=== PATIENT | male | born 1955 | race Hispanic/Latino ===

== ENCOUNTER 2020-10-07 09:45 | Emergency (ER) | payer BC ==
[~2020-10-07] VITALS: Ht 175.3 cm; Wt 119.7 kg
[2020-10-07 09:46] VITALS: BP 122/62
[2020-10-07] MEDS ORDERED: FAMOTIDINE 20MG VIAL IV ONE (10:29)
[2020-10-07] MEDS ORDERED: FAMOTIDINE 20MG VIAL IV SCH (10:30)
[2020-10-07 10:34] LABS: BASOPHILS % (AUTO) 0.2 % (0.0-5.0); EOSINOPHILS % (AUTO) 0.1 % (0.0-8.0); HEMATOCRIT 41.8 % (42-54); LYMPHOCYTES % (AUTO) 6.8 % (21.0-51.0); MEAN CORPUSCULAR HEMOGLOBIN 32.3 pg (27.0-33.0); MEAN CORPUSCULAR HGB CONC 34.7 g/dL (32.0-36.0); MEAN CORPUSCULAR VOLUME 93.1 fL (79-99); MONOCYTES % (AUTO) 3.6 % (3.0-13.0); NEUTROPHILS % (AUTO) 88.7 % (40.0-77.0); PLATELET COUNT (AUTO) 289 K/uL (130-400); RED BLOOD CELL COUNT(AUTO) 4.49 MIL/uL (4.50-6.20); RED CELL DISTRIBUTION WIDTH 12.9 % (11.0-15.5); WHITE BLOOD COUNT (AUTO) 16.3 K/uL (4.8-10.8)
[2020-10-07 10:48] LABS: CREATININE 0.9 mg/dL (0.5-1.5); INR 1.09 (0.85-1.15); PROTHROMBIN TIME 11.8 SEC (9.6-11.6)
[2020-10-07 10:53] LABS: ALBUMIN 3.9 g/dL (3.5-5.0); BILIRUBIN,TOTAL 0.9 mg/dL (0.2-1.0); TOTAL PROTEIN, SERUM 7.8 g/dL (6.0-8.3)
[2020-10-07 10:58] LABS: B-TYPE NATRIURETIC PEPTIDE 87 pg/mL (0-100)
[2020-10-07 11:25] VITALS: BP 132/58
[2020-10-07 12:41] VITALS: BP 128/59
[2020-10-07] MEDS ORDERED: 0.9%NACL 1000ML 1,000 ML IV ONE (14:45)
[2020-10-07 14:48] VITALS: BP 148/73
[2020-10-07] MEDS ORDERED: FAMO10VI2 IV (15:16)
[2020-10-07 16:52] VITALS: BP 127/56
[2020-10-07] MEDS ORDERED: FAMO-136 PO (17:18)
== END 2020-10-07 17:55 | disposition home or self-care (01) ==
LOC: EDBD 09:45 → EDH 09:45
DX: K21.00 Gastro-esophageal reflux disease with esophagitis, without bleeding (principal)
CPT/HCPCS: 36415; 71045; 80053; 82550; 83880; 84484 ×2; 85025; 85610; 93005; 96374; 99285; J3490